=== PATIENT | female | born 1955 | race Caucasian/White ===

== ENCOUNTER 2020-04-28 09:33 | Emergency (ER) | payer OTHER ==
--- NOTE | 2020-04-28 10:54 | EDM.PDOC ---
ED HPI GENERAL MEDICAL PROBLEM - General Chief Complaint: Respiratory Problem Stated Complaint: COVID + AND SOB Time Seen by Provider: 04/28/20 10:44 - History of Present Illness INITIAL COMMENTS - FREE TEXT/NARRATIVE: 64-year-old female presents to the emergency room after being evaluated in the walk-in clinic with a history of COVID and continued shortness of breath. Patient was seen in the walk-in clinic yesterday chest x-ray was read by radiology as negative however the clinic crew thought perhaps she may have an indication for a blood clot and the patient was called this morning to come in for CT study. Patient was diagnosed with COVID towards the end of March and has for the most part improved significantly however she still has some shortness of breath. The patient has a home O2 monitor that works good on her grandchild and on her but does not work so good on her however she has clear nail turkish on. With time it read satisfactory but when it first gets put on she reads in the 80s sometimes. The patient was coughing up some green sputum for a while and she had a Z-[place] at home she took this and the green sputum did improve. Yesterday in the clinic she was started on albuterol MDI with a spacer and started on prednisone and she thinks today she is doing better than she did yesterday. Chest Pain Score (Numeric/FACES): 4 - Related Data Allergies Allergy/AdvReac Type Severity Reaction Status Date / Time codeine AdvReac Nausea and Verified 04/28/20 09:49 Vomiting Home Meds: Home Meds Acetaminophen/oxyCODONE [Percocet 325-5 MG] 1 - 2 tab PO Q4H PRN #60 tablet 08/23/15 [Rx] Ondansetron [Zofran ODT] 4 mg PO Q6H PRN #15 tab.dis 08/23/15 [Rx] Sennosides/Docusate Sodium [Senna-S] 2 tab PO BID #60 tablet 08/23/15 [Rx] buPROPion [Wellbutrin SR] 1 tab PO DAILY 08/23/15 [History] Past Medical History - Infectious Disease History Infectious Disease History: Reports: Novel Coronavirus - Past Surgical History HEENT Surgical History: Reports: Adenoidectomy, Oral Surgery, Radial Keratotomy, Tonsillectomy Female Surgical History: Reports: Section, Hysterectomy Musculoskeletal Surgical History: Reports: Carpal Tunnel, Other (See Below) Dermatological Surgical History: Reports: Other (See Below) Social & Family History - Tobacco Use Tobacco Use Status *Q: Never Tobacco User Second Hand Smoke Exposure: No - Caffeine Use Caffeine Use: Reports: None - Recreational Drug Use Recreational Drug Use: No ED ROS GENERAL - Review of Systems Review Of Systems: See Below Constitutional: Reports: Weakness HEENT: Reports: No Symptoms Respiratory: Reports: Shortness of Breath, Cough, Sputum, Other (The patient had some pleuritic type chest pain that she thinks is improving at this time.) Endocrine: Reports: No Symptoms GI/Abdominal: Reports: No Symptoms : Reports: No Symptoms Musculoskeletal: Reports: No Symptoms Skin: Reports: No Symptoms Neurological: Reports: No Symptoms Psychiatric: Reports: No Symptoms ED EXAM, GENERAL - Physical Exam Exam: See Below Exam Limited By: No Limitations General Appearance: Alert, No Apparent Distress Head: Atraumatic, Normocephalic Neck: Normal Inspection, Supple, Non-Tender, Full Range of Motion Respiratory/Chest: No Respiratory Distress, Lungs Clear, Normal Breath Sounds Cardiovascular: Regular Rate, Rhythm, No Edema, No Murmur GI/Abdominal: Normal Bowel Sounds, Soft, Non-Tender Back Exam: Normal Inspection. No: CVA Tenderness (L), CVA Tenderness (R) Course - Vital Signs Last Recorded V/S: Last Vital Signs Temp 36.7 C 04/28/20 09:43 Pulse 89 04/28/20 09:43 Resp 18 04/28/20 09:43 BP 148/83 H 04/28/20 09:43 Pulse Ox 95 04/28/20 09:43 - Orders/Labs/Meds Orders: Active Orders 24 hr Category Date Time Status EKG Documentation Completion [RC] STAT Care 04/28/20 11:19 Active Chest 1V Frontal [CR] Stat Exams 04/28/20 11:22 Taken Labs: Laboratory Tests 04/28/20 04/28/20 04/28/20 Range/Units 11:36 11:36 11:36 WBC 9.09 (3.98-10.04) K/mm3 RBC 4.68 (3.98-5.22) M/mm3 Hgb 13.4 (11.2-15.7) gm/dl Hct 41.6 (34.1-44.9) % MCV 88.9 (79.4-94.8) fl MCH 28.6 (25.6-32.2) pg MCHC 32.2 (32.2-35.5) g/dl RDW Std Deviation 40.9 (36.4-46.3) fL Plt Count 472 H (182-369) K/mm3 MPV 9.2 L (9.4-12.3) fl Neut % (Auto) 75.4 H (34.0-71.1) % Lymph % (Auto) 15.6 L (19.3-51.7) % [place] % (Auto) 6.8 (4.7-12.5) % Eos % (Auto) 1.8 (0.7-5.8) Baso % (Auto) 0.2 (0.1-1.2) % Neut # (Auto) 6.85 H (1.56-6.13) K/mm3 Lymph # (Auto) 1.42 (1.18-3.74) K/mm3 [place] # (Auto) 0.62 H (0.24-0.36) K/mm3 Eos # (Auto) 0.16 (0.04-0.36) K/mm3 Baso # (Auto) 0.02 (0.01-0.08) K/mm3 PT 10.6 (9.7-11.7) SECONDS INR 0.99 APTT 26 (22-31) SECONDS D-Dimer, Quantitative (0.19-0.50) mg/L Troponin I < 0.017 (0.00-0.056) ng/mL NT-Pro-B Natriuret Pep (0-125) pg/mL TSH 3rd Generation (0.358-3.74) uIU/mL 04/28/20 04/28/20 04/28/20 Range/Units 11:36 11:36 11:36 WBC (3.98-10.04) K/mm3 RBC (3.98-5.22) M/mm3 Hgb (11.2-15.7) gm/dl Hct (34.1-44.9) % MCV (79.4-94.8) fl MCH (25.6-32.2) pg MCHC (32.2-35.5) g/dl RDW Std Deviation (36.4-46.3) fL Plt Count (182-369) K/mm3 MPV (9.4-12.3) fl Neut % (Auto) (34.0-71.1) % Lymph % (Auto) (19.3-51.7) % [place] % (Auto) (4.7-12.5) % Eos % (Auto) (0.7-5.8) Baso % (Auto) (0.1-1.2) % Neut # (Auto) (1.56-6.13) K/mm3 Lymph # (Auto) (1.18-3.74) K/mm3 [place] # (Auto) (0.24-0.36) K/mm3 Eos # (Auto) (0.04-0.36) K/mm3 Baso # (Auto) (0.01-0.08) K/mm3 PT (9.7-11.7) SECONDS INR APTT (22-31) SECONDS D-Dimer, Quantitative 0.57 H (0.19-0.50) mg/L Troponin I (0.00-0.056) ng/mL NT-Pro-B Natriuret Pep 653 H (0-125) pg/mL TSH 3rd Generation 0.637 (0.358-3.74) uIU/mL - Re-Assessments/Exams Free Text/Narrative Re-Assessment/Exam: 04/28/20 12:37 At this point the patient has a normal white count. Her d-dimer came back slightly elevated at 0.57 upper end of normal being 0.5 I suspect this is trending downward as most people with COVID have elevated D-dimers. When the patient first arrived I did have a discussion with her that perhaps going straight to CTA might be a little aggressive with the potential risk of the contrast and the definite risk of the radiation. And recommended basing imaging on a minimally elevated d-dimer .57. Especially given the patient's age this could be normal variant for the patient. Given that the patient is clinically doing better after treatment for her bronchitis I think it is very reasonable to wait and hold off on the CT and watch her clinical symptoms. The patient is in agreement to this treatment plan. We are awaiting further labs and chemistries at this point. 04/28/20 14:03 Her troponin is normal proBNP is elevated however. TSH is normal. We will discharge the patient at this time she is doing better on the albuterol and prednisone. I do not believe antibiotics are indicated at this point. With her elevated BNP a cardiac echo may be of benefit. She will discuss this with her primary and get it ordered through [employer] as that is where her insurances is. Departure - Departure Time of Disposition: 14:05 Disposition: Home, Self-Care 01 Clinical Impression: COVID-19 virus infection, Elevated brain natriuretic peptide (BNP) level - Discharge Information Referrals: Shauna Cooper NP [Primary Care Provider] - Forms: ED Department Discharge Additional Instructions: Return to the emergency room with any questions problems or worsening symptoms. Continue the prednisone and albuterol inhaler. As we discussed your BNP is elevated. I would recommend getting an echocardiogram to look for heart abnormalities. Some people with COVID-19 get a secondary cardiomyopathy, or dysfunction of the heart muscle. And this should b e evaluated. Call your primary provider tomorrow and see if she can order this for you. Sepsis Event Note (ED) - Evaluation Sepsis Screening Result: No Definite Risk - Focused Exam Vital Signs: Vital Signs Temp Pulse Resp BP Pulse Ox 04/28/20 09:43 36.7 C 89 18 148/83 H 95 - My Orders Last 24 Hours: My Active Orders 04/28/20 11:19 EKG Documentation Completion [RC] STAT 04/28/20 11:22 Chest 1V Frontal [CR] Stat - Assessment/Plan Last 24 Hours: My Active Orders 04/28/20 11:19 EKG Documentation Completion [RC] STAT 04/28/20 11:22 Chest 1V Frontal [CR] Stat
[2020-04-28 15:16] VITALS: BP 155/88; PULSE 85
== END 2020-04-28 14:16 | disposition home or self-care (01) ==
LOC: JD.ED 09:33
DX: U07.1 COVID-19 (principal); R79.89 Other specified abnormal findings of blood chemistry; Z88.5 Allergy status to narcotic agent; Z79.899 Other long term (current) drug therapy
CPT/HCPCS: 36415; 71045; 83880; 84443; 84484; 85025; 85379; 85610; 85730; 93005; 93010; 99282; 99285-25